=== PATIENT | female | born 1990 | race Caucasian/White ===

== ENCOUNTER 2019-06-21 08:17 | Outpatient (CLI) | payer BC | END 2019-06-21 10:55 | disposition home or self-care (01) | LOC: LDOP 08:17 | PROVIDERS: ATTEND Obstetrics & Gynecology | DX: O36.8120 Decreased fetal movements, second trimester, not applicable or unspecified (principal); O23.12 Infections of bladder in pregnancy, second trimester; O36.8320 Maternal care for abnormalities of the fetal heart rate or rhythm, second trimester, not applicable or unspecified; Z3A.27 27 weeks gestation of pregnancy | CPT/HCPCS: 59025; 76819; 99201; G0463 ==

== ENCOUNTER 2019-08-09 08:08 | Outpatient (CLI) | payer BC, MEDICAID ==
[~2019-08-09] VITALS: Ht 157.5 cm; Wt 70.0 kg
[2019-08-09 08:10] VITALS: BP 99/60
[2019-08-09 08:52] LABS: MICROSCOPIC INDICATED
[2019-08-09] MEDS ORDERED: PREN1TAB60 PO (09:06)
[2019-08-09] MEDS ORDERED: FOLI-17 PO (09:06)
[2019-08-09 09:43] LABS: AMPHETAMINE SCREEN, URINE Negative (Negative); BARBITURATE SCREEN, URINE Negative (Negative); BENZODIAZEPINE SCREEN, URINE Negative (Negative); CANNABINOID SCREEN, URINE Negative (Negative); COCAINE SCREEN, URINE Negative (Negative); METHADONE SCREEN, URINE Negative (Negative); OPIATE SCREEN, URINE Negative (Negative)
== END 2019-08-09 08:48 | disposition home or self-care (01) ==
LOC: LDOP 08:08
PROVIDERS: ATTEND Obstetrics & Gynecology
DX: O46.93 Antepartum hemorrhage, unspecified, third trimester (principal); Z3A.33 33 weeks gestation of pregnancy
CPT/HCPCS: 59025; 80307; 81001; 99211; G0463

== ENCOUNTER 2019-09-16 20:21 | Inpatient (IN) | payer MEDICAID ==
[~2019-09-16] VITALS: Ht 157.5 cm; Wt 74.1 kg
[~2019-09-16 20:21] MED LIST: FOLI-17 PO; PREN1TAB60 PO
[2019-09-16 20:30] VITALS: BP 118/68
[2019-09-16] MEDS ORDERED: LACTATED RINGERS 1,000 ML IV SCH (21:42)
[2019-09-16] MEDS ORDERED: OXYTOCIN 30U/ 0.9% NaCL 500ML 500 ML IV ONE (21:42)
[2019-09-16] MEDS ORDERED: D5%-LACTATED RINGERS 1,000 ML IV SCH (21:42)
[2019-09-16] MEDS ORDERED: FENTANYL/BUPIV./NS/PF 250 ML EPIDCONT SCH (21:44)
[2019-09-16] MEDS ORDERED: MISOPROSTOL 200 MCG TABLET ONE (21:46)
[2019-09-16] MEDS ORDERED: OXYTOCIN 30U/ 0.9% NaCL 500ML 500 ML ONE (21:46)
[2019-09-16] MEDS ORDERED: LIDOCAINE 1%, 20ML ONE (21:46)
[2019-09-16] MEDS ORDERED: SODIUM CHLORIDE FLUSH 10ML SYR IVF PRN (22:00)
[2019-09-16] MEDS ORDERED: ALUMINUM/MAG/SIMETHICONE 30 ML UDC PO PRN (22:00)
[2019-09-16] MEDS ORDERED: TERBUTALINE 1 MG/ML, 1ML SQ PRN (22:00)
[2019-09-16] MEDS ORDERED: FENTANYL PF 100 MCG/2ML IV PRN (22:00)
[2019-09-16] MEDS ORDERED: FENTANYL PF 100 MCG/2ML IVPush PRN (22:00)
[2019-09-16] MEDS ORDERED: METOCLOPRAMIDE 5 MG/ML, 2ML IVPush PRN (22:00)
[2019-09-16] MEDS ORDERED: TERBUTALINE 1 MG/ML, 1ML IVPush PRN (22:00)
[2019-09-16] MEDS ORDERED: SODIUM CITRATE/CITRIC ACID 30 ML UDC PO PRN (22:00)
[2019-09-16] MEDS ORDERED: ONDANSETRON 2MG/ML, 2ML IVPush PRN (22:00)
[2019-09-16 22:02] LABS: BASOPHILS # (AUTO) 0.09 x10^3/uL (0-0.1); BASOPHILS % (AUTO) 1 % (0-1); EOSINOPHILS # (AUTO) 0.04 x10^3/uL (0-0.4); EOSINOPHILS % (AUTO) 0 % (1-7); LYMPHOCYTES # (AUTO) 2.23 x10^3/uL (1-3.4); LYMPHOCYTES % (AUTO) 21 % (22-44); MD NO; MEAN CORPUSCULAR HEMOGLOBIN 29.5 pg (27.0-34.8); MEAN CORPUSCULAR HGB CONC 33.5 g/dL (32.4-35.8); MEAN PLATELET VOLUME 9.7 fL (7.4-10.4); MONOCYTES # (AUTO) 0.71 x10^3/uL (0.2-0.8); MONOCYTES % (AUTO) 7 % (2-9); NEUTROPHILS % (AUTO) 71 % (42-75); PLATELET COUNT 191 x10^3/uL (130-400); RED CELL DISTRIBUTION WIDTH 14.1 % (9.6-15.2)
[2019-09-16] MEDS ORDERED: FENTANYL PF 100 MCG/2ML ONE (22:31)
[2019-09-16] MEDS: OXYTOCIN 30U/ 0.9% NaCL 500ML 500 ML IV SCH (23:17)
[2019-09-16] MEDS ORDERED: DOCUSATE 100 MG CAPSULE PO PRN (23:30)
[2019-09-16] MEDS ORDERED: MISOPROSTOL 200 MCG TABLET PR PRN (23:30)
[2019-09-16] MEDS ORDERED: SIMETHICONE 80 MG CHEW TAB PO PRN (23:30)
[2019-09-16] MEDS ORDERED: ONDANSETRON 2MG/ML, 2ML IV PRN (23:30)
[2019-09-16] MEDS ORDERED: OXYcodone IR 5MG TABLET PO PRN ×2 (23:30)
[2019-09-16] MEDS ORDERED: ACETAMINOPHEN 325 MG TABLET PO PRN (23:30)
[2019-09-16] MEDS ORDERED: IBUPROFEN 600 MG TABLET PO PRN (23:30)
[2019-09-17] MEDS ORDERED: OXYTOCIN 30U/ 0.9% NaCL 500ML 500 ML ONE (00:03)
[2019-09-17 01:25] VITALS: BP 103/68
[2019-09-17 05:30] VITALS: BP 103/65
[2019-09-17 07:30] VITALS: BP 101/63
[2019-09-17 07:42] LABS: MEAN CORPUSCULAR HEMOGLOBIN 29.3 pg (27.0-34.8); MEAN CORPUSCULAR HGB CONC 32.8 g/dL (32.4-35.8); MEAN CORPUSCULAR VOLUME 89.2 fL (80-100); MEAN PLATELET VOLUME 9.8 fL (7.4-10.4); PLATELET COUNT 182 x10^3/uL (130-400); RED CELL DISTRIBUTION WIDTH 14.4 % (9.6-15.2)
[2019-09-17 08:23] LABS: BASOPHILS # (AUTO) 0.03 x10^3/uL (0-0.1); BASOPHILS % (AUTO) 0 % (0-1); EOSINOPHILS # (AUTO) 0.04 x10^3/uL (0-0.4); EOSINOPHILS % (AUTO) 0 % (1-7); LYMPHOCYTES # (AUTO) 2.56 x10^3/uL (1-3.4); LYMPHOCYTES % (AUTO) 16 % (22-44); MD SCAN; MONOCYTES # (AUTO) 0.69 x10^3/uL (0.2-0.8); MONOCYTES % (AUTO) 4 % (2-9); NEUTROPHILS # (AUTO) 12.62 x10^3/uL (1.8-6.8); NEUTROPHILS % (AUTO) 79 % (42-75)
[2019-09-17] MEDS ORDERED: PRENATAL VIT/IRON/FA 1 EACH TABLET PO SCH (09:00)
[2019-09-17] MEDS: OXYTOCIN 30U/ 0.9% NaCL 500ML 500 ML IV SCH ×2 (09:28→19:28)
[2019-09-17 12:35] VITALS: BP 100/65
[2019-09-17 16:00] VITALS: BP 99/63
[2019-09-17 21:00] VITALS: BP 107/71
[2019-09-18] MEDS: OXYTOCIN 30U/ 0.9% NaCL 500ML 500 ML IV SCH (05:28)
[2019-09-18 08:15] VITALS: BP 14/71
[2019-09-18] MEDS ORDERED: IBUP-1222 PO (09:24)
[2019-09-18] MEDS ORDERED: DIPH,PERTUSS(ACELL),TET VAC/PF NC IM-VACC ONE (11:00)
== END 2019-09-18 12:25 | disposition home or self-care (01) | DRG 807 ==
LOC: LDOP 20:21 → LDIP 21:43 → 2NW 09-17 01:27
PROVIDERS: ADMIT Obstetrics & Gynecology; ATTEND Obstetrics & Gynecology
PROC: 10E0XZZ Delivery of Products of Conception, External Approach (ICD-10-PCS; principal; 2019-09-16)
PROC: 0HQ9XZZ Repair Perineum Skin, External Approach (ICD-10-PCS; 2019-09-16)
PROC: 0UQMXZZ Repair Vulva, External Approach (ICD-10-PCS; 2019-09-16)
PROC: 3E0R3BZ Introduction of Anesthetic Agent into Spinal Canal, Percutaneous Approach (ICD-10-PCS; 2019-09-16)
PROC: 00HU33Z Insertion of Infusion Device into Spinal Canal, Percutaneous Approach (ICD-10-PCS; 2019-09-16)
PROC: 3E0234Z Introduction of Serum, Toxoid and Vaccine into Muscle, Percutaneous Approach (ICD-10-PCS; 2019-09-18)
DX: O69.81X0 Labor and delivery complicated by cord around neck, without compression, not applicable or unspecified (principal); Z37.0 Single live birth; Z3A.39 39 weeks gestation of pregnancy; Z23 Encounter for immunization; O70.0 First degree perineal laceration during delivery; O71.82 Other specified trauma to perineum and vulva
CPT/HCPCS: 36415; 85025; 86592; 86850; 86900; 90715; G0378; J3010; J2590; J7120